=== PATIENT | male | born 1935 | race Caucasian/White ===

== ENCOUNTER 2016-11-01 17:22 | Inpatient (IN) | payer MEDICARE ==
[~2016-11-01] VITALS: Ht 177.8 cm; Wt 98.9 kg
[~2016-11-01 17:22] MED LIST: ALEN40TA2 PO; BRIM5DRO LEFT_EYE; CARB1TAB14 PO; DICL100G8 TOPICAL; DOCU240C41 PO; LATA2.5D6 LEFT_EYE; LEVO750T9 PO; LORA0.5T PO; MAGN100T5 PO; NASONEX; POTA10TA12 PO; PRD5T PO; PREG225C PO; aleve
[2016-11-01 17:40] VITALS: BP 170/70; PULSE 96; RESP 22; O2SAT 94
[2016-11-01 17:58] LABS: BASOPHILS % (AUTO) 0.1 % (0-3); EOSINOPHILS % (AUTO) 0 % (0-5); MONOCYTES % (AUTO) 4.8 % (4-12); Mean Corpuscular Hemoglobin 35.1 pg (27.0-35.0); Mean Corpuscular Volume 104.2 fL (81-100); NEUTROPHILS % (AUTO) 89.7 % (40-74); Platelet Count 198 bil/L (150-400)
[2016-11-01 18:21] LABS: TROPONIN T < 0.010 ug/L (0.0-0.011)
--- NOTE | 2016-11-01 18:21 | DRSVH ---
PROCEDURE: X-RAY CHEST ONE VIEW, PORTABLE ([id number]) INDICATIONS: SHORTNESS OF BREATH TECHNIQUE: One view of the chest was acquired. COMPARISON: [facility], CT, CT CHEST W CON, 10/06/2016, 12:59. [facility], C R, XR CHEST 1VW (PORTABLE), 09/12/2015, 23:33. FINDINGS: Surgical changes and devices: Low anterior cervical fusion. Right shoulder arthroplasty. Lungs and pleura: No pleural effusions or pneumothorax. Moderate patchy opacity within the left midl raudel and right lower lung. Mediastinum: Mediastinal contours appear normal. Heart size is normal. Bones and chest wall: No suspicious bony lesions. Overlying soft tissues appear unremarkable. IMPRESSION: Multifocal pneumonia. Dictated by: Ray Desai M.D. on 11/01/2016 at 18:18 Approved by: Ray Desai M.D. on 11/01/2016 at 18:18
[2016-11-01 19:04] VITALS: BP 174/42; PULSE 97; RESP 24; O2SAT 96
--- NOTE | 2016-11-01 19:37 | ED.REPORT ---
HPI-Trauma Minor / Fall Date of Service Nov 01, 2016 ED Provider: John Holcomb MD 81 year old male with a history of Afib, Parkinson's, anxiety, depression and chronic pain who presents to the ER due to generalized weakness. Today he fell on the ground and was unable to get himself up off the ground. He was on the ground for approximately 2.5 hours before calling EMS. Pt reports head trauma with no LOC. In the last hour he has developed a mild headache. For the last few days the patient has felt chills and his noted him to be shaky. He reports a productive cough with no acute change in the last few days. Pt has chronic back pain but denies focal weakness, SOB, dysuria, vomiting, diarrhea and diaphoresis. Pt has not taken antibiotics for the last 3 months. Nursing Notes Stated Complaint: GROUND LEVEL FALL Chief Complaint: General Complaint Nursing Notes Reviewed: Yes ([employer], [employer] not reconciled) Allergies: Coded Allergies: Cephalexin Monohydrate (Verified Allergy, Intermediate, Rash/itching, ) Penicillins (Verified Allergy, Unknown, 11/01/16) oxycodone (Verified Allergy, Unknown, unknown, 11/01/16) Patient wants it documented in allergy list. Uncoded Allergies: CAT GUTS (Allergy, Unknown, 04/01/07) Scheduled Alendronate (Alendronate) 40 Mg Tablet 70 MG PO WEEKLY Take on Saturdays Aspirin (Aspirin) 81 Mg Tablet 81 MG PO DAILY Brimonidine Tartrate/Timolol (Combigan Eye Drops) 5 Ml Drops 5 ML LEFT_EYE BID Carbidopa/Levodopa 25-100 mg (Carbidopa/Levodopa 25-100 mg) 1 Each Tablet 1 TABLET PO TID Carboxymethylcellulos/Glycerin (Refresh Optive Gel Eye Drops) 1 %-0.9 % Drops.gel 10 ML BOTH_EYES HS 1 drop at night and as needed throughout the day Docusate Calcium (Stool Softener) 240 Mg Capsule 240-480 MG PO DAILY Hydrochlorothiazide (Hydrochlorothiazide) 25 Mg Tablet 25 MG PO Mon/Wed/Fri Hydrocodone-Acetaminophen 7.5-325 mg (Hydrocodone-Acetaminophen 7.5-325 mg) 1 Each Tablet 1-2 TABLET PO DIRECTED Takes 2 in AM, 1 in afternoon, 2-3 tablets at HS. Up to 6/day. Latanoprost (Latanoprost) 2.5 Ml Drops 1 GTT LEFT_EYE QAM Takes in AM Lorazepam (Lorazepam) 0.5 Mg Tablet 0.5 MG PO BID Takes in evening and at HS Magnesium Oxide (Magnesium) 400 Mg Tablet 400 MG PO HS Multivit with Calcium,Iron,Min (Therapeutic M) 1 Each Tablet 1 EACH PO DAILY Potassium Chloride ER (Potassium Chloride ER) 10 Meq Tablet 10 MEQ PO Mon/Sun/ Fri TAKE WITH FOOD Prednisolone Acetate (Prednisolone Acetate) 5 Ml Drops.susp 5 ML LEFT_EYE HS Prednisone (PredniSONE) 5 Mg Tab 7.5 MG PO DAILY Pregabalin (Lyrica) 225 Mg Capsule 225 MG PO HS Tizanidine (Tizanidine) 4 Mg Tablet 6 MG PO HS Scheduled PRN Diclofenac Gel (Voltaren Gel) 100 Gm Tube 1 APPLIC TOPICAL DAILY PRN PRN For Pain To shoulders Polyethylene Glycol 3350 (Miralax) 17 Gm Powd.pack 17 GM PO DAILY PRN PRN For Constipation General Time Seen by MD: 19:33 Chief Complaint Fall Hx Obtained From: Patient, Spouse, EMS Arrived By: Ambulance Onset Occurred: 2 days ago Symptom Duration: Since onset Location: Back (chronic) Head Quality: Painful Severity: Current: Moderate Associated with: Denies: Fever, Loss of consciousness, Neck pain, Shortness of breath, Vomiting Pertinent Negative: Relieved by nothing Past Medical History Past Medical History Parkinson's Anxiety Osteoarthiritis Depression Atrial Fibrillation (not on anticoagulation due to fall risk) ho lung nodule (most recent FU CT 10/2016) Chronic back pain Past Surgical History Total knee repair-right Right shoulder repair Smoking History Former Smoker Social History History of moderate alcohol use. None recently. 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 Physical Exam Initial Vital Signs Vital Signs (First) Date Time Temp Pulse Resp B/P Pulse Ox O2 Delivery O2 Flow Rate FiO2 11/01/16 17:40 37.5 96 22 170/70 94 Room Air Initial VS: Reviewed, Vital signs abnormal (mild HTN) Head / Eyes: Atraumatic (no visible or palpable signs of injury to scalp. ) , Normocephalic, PERRL ENT: Conjunctiva normal, No scleral icterus Respiratory: Breath sounds normal, Clear to auscultation, No respiratory distress (no cough during interview) Abdomen / GI: Soft, Non-tender, No guarding, No rebound, No distention Extremities: Vascular intact, Neuro intact, No tenderness (trace edema in legs) Skin: Warm (Scar of R knee and R shoulder from previous surgeries.), Dry, No cyanosis Neurologic: Alert, Oriented, Nonfocal (no focal weakness) Psychiatric: Mood/affect normal, Behavior normal, Normal thought content General/Constitutional: Awake, Alert, No acute distress Fatigued Globally weak Neck: Atraumatic, Full range of motion, Non-tender ENT: Airway patent Mucous membranes dry Cardiovascular: Heart rate NL, Cap refill not delayed, Peripheral circulation NL Heart Rate / Rhythm: Positive: Irreg irregular rhythm Interpretation & Diagnostics Lab Results Interpretation Result Diagram: 11/01/16 1742 11/01/16 1742 Test 11/01/16 17:42 11/01/16 18:30 White Blood Count 21.9th/mm3 (3.8-10.1) Red Blood Count 3.85mil/mm3 (4.40-5.80) Hemoglobin 13.5g/dL (13.8-17.2) Hematocrit 40.1% (41.0-50.0) Mean Corpuscular Volume 104.2fL (81-100) Mean Corpuscular Hemoglobin 35.1pg (27.0-35.0) Mean Corpuscular Hemoglobin Concent 33.7% (32.0-37.0) Red Cell Distribution Width 13.3% (12.3-15.4) Platelet Count 198bil/L (150-400) Neutrophils (%) (Auto) 89.7% (40-74) Lymphocytes (%) (Auto) 5.0% (14-46) Monocytes (%) (Auto) 4.8% (4-12) Eosinophils (%) (Auto) 0% (0-5) Basophils (%) (Auto) 0.1% (0-3) Hold Purple Top Tube Received (Received) Hold Blue Top Tube Received (Received) Sodium Level 137mEq/L (134-144) Potassium Level 4.2mEq/L (3.5-5.2) Chloride Level 96mEq/L (97-108) Carbon Dioxide Level 25mmol/L (18-29) Blood Urea Nitrogen 18mg/dL (8-27) Creatinine 0.74mg/dL (0.76-1.27) Estimat Glomerular Filtration Rate 108mL/min (>59) Glucose Level 109mg/dL (60-99) Calcium Level 9.1mg/dL (8.5-10.1) Total Bilirubin 1.5mg/dL (0.0-1.2) Aspartate Amino Transf (AST/SGOT) 27U/L (0-50) Alanine Aminotransferase (ALT/SGPT) 6U/L (0-44) Alkaline Phosphatase 63U/L (25-160) Troponin T < 0.010ug/L (0.0-0.011) Pro-B-Type Natriuretic Peptide 1713pg/mL (0-486) Total Protein 6.6g/dL (6.4-8.4) Albumin 4.1g/dL (3.4-5.0) Hold Red Top Tube Received (Received) Hold [place] Top Tube Received (Received) Lactic Acid Level 1.5mmol/L (0.4-2.0) Procalcitonin 0.26ng/mL (0.00-0.08) Lab Results Interpretation: CBC positive leukocytosis CMP normal, trace total bili elevation Lactic acid normal General Lab Results Interp 1: Labs reviewed ECG Interpretation ECG Interpretation: Rate controlled Afib rate of 87. Q waves anteriorly present on old ECG's. No change. Time: 18:05 Interpreted by: ED physician Normal ECG Interpretation: Normal rate (87) Rhythm / Conduction: Atrial fibrillation X-Ray Chest Interpretation Chest Xray Interpretation: IMPRESSION: Multifocal pneumonia. Dictated by: Ray Desai M.D. on 11/01/2016 at 18:18 View: Portable, 1 view Interpretation / Wet Read by: Interpret - Radiologist CT Head Interpretation IMPRESSION: No acute process. Dictated by: Ray Desai M.D. on 11/01/2016 at 20:34 Study: Head CT no contrast Interpretation / Wet Read by: Interpret - Radiologist Re-Eval/Medical Decision Med Decision/Clinical Course This is an 81-year-old male who presents to emergency department complaining of increasing weakness leading to a fall. He has seen yesterday developed a sense of shaking chills and rigors witnessed by the , and today was much more generally weak. Back to try to get up to go back to bed, collapsing to the floor where he did strike his head. Since she has been emergent when he actually has developed an increase headache. He laid on the floor for several hours but was too weak to get up-any Refusing to let his called for assistance. Finally he gave in and let us call for help. He has had a cough, but notes she has also had a cough for several months and is being followed for lung nodules. He denies nausea vomiting diarrhea or dysuria. He denies rashes. He has had no recent antibiotic exposures or hospitalizations. He does have Parkinson's and is due for his symptoms tonight, he also has chronic back pain is due for his hydrocodone. He is not currently febrile. He appears globally weak. I do not appreciate visible signs of trauma to head in terms of laceration, abrasion or hematoma- the patient is complaining of increased headache. He has no cervical spine tenderness. Lungs sounds are coarse, but is not tachypneic or dyspneic. He is not hypoxic. Abdomen is obese soft nontender. He has no focal deficits. His labs are notable for significant leukocytosis, which is concerning in the setting of caridad's and chills as he describes an infectious etiology. His chest x-ray is a new right lower lobe infiltrate, new from his chest CT in October, new compared to the x-ray in September when he was admitted in 2016 for pneumonia. He is started on ceftriaxone and azithromycin. See fluids, Tylenol, received his dose of Sinemet and hydrocodone, and is being admitted for continued management. Given the worsening headache after "hitting my head pretty done well." Head CT was obtained and was negative. He has nol findings of a hip fracture or other injury. Source of Hx: Old records Re-Evaluation/Progress : Time of Eval: 20:01 Re-Evaluation/Progress Note: Pt updated of imaging, labs, ECG and plan for admission. Pt understands and agrees with plan. All questions addressed. Counseled Regarding: Diagnosis, Lab results, Need for admission Discharge & Departure Impression: Primary Impression: Pneumonia Pneumonia type: due to unspecified organism Laterality: bilateral Lung location: unspecified part of lung Qualified Code: J18.9 - Pneumonia, unspecified organism Additional Impressions: Generalized weakness Fall from ground level Disposition: ADMITTED TO HOSPITAL Discharge Condition All VS Reviewed: Yes Referrals: Jerry Barber MD (PCP) Scribe Attestation Portions of this note were transcribed by Ananya Lawson. I, Dr. Holcomb personally performed the history, physical exam and medical decision-making; I reviewed and confirmed the accuracy of the information in the transcribed note. Signed by Bessy Solis, 11/01/2016 at 20:09. copies to: Jerry Barber MD, Matthew F MD Nov 01, 2016 19:37 Ananya Lawson Nov 01, 2016 19:48
[2016-11-01] MEDS ORDERED: HYDROcodone-APAP 7.5-325 mg Tablet PO ONE (19:40)
[2016-11-01] MEDS ORDERED: HYDROmorphone 0.5 mg/0.5 mL iSecure Syringe IVPUSH PRN (20:05)
[2016-11-01] MEDS ORDERED: levoFLOXacin Inj 750 MG in IV Premix 1 EACH IV ONE (20:05)
[2016-11-01] MEDS ORDERED: Ondansetron 2 mg/mL 2 mL Inj IVPUSH ONE (20:05)
[2016-11-01] MEDS ORDERED: POLY17PO6 PO (20:16)
[2016-11-01] MEDS ORDERED: MAGN400T39 PO (20:22)
[2016-11-01] MEDS ORDERED: TIZA4TAB4 PO (20:22)
[2016-11-01] MEDS ORDERED: HYDR25TA4 PO (20:22)
[2016-11-01] MEDS ORDERED: ASPI-973 PO (20:27)
[2016-11-01] MEDS ORDERED: HYDR-3825 PO (20:28)
[2016-11-01] MEDS ORDERED: CARB10DR2 BOTH_EYES (20:28)
[2016-11-01] MEDS ORDERED: PRED5DRO6 LEFT_EYE (20:28)
[2016-11-01] MEDS ORDERED: MULT-140 PO (20:39)
--- NOTE | 2016-11-01 20:40 | DRSVH ---
PROCEDURE: CT BRAIN WITHOUT CONTRAST ([id number]) INDICATIONS: trauma fall rodriguez TECHNIQUE: Noncontrast 4.5 mm thick angled axial sections acquired from the foramen magnum to the vertex, with c oronal reformats. COMPARISON: [facility], CT, CT BRAIN WO CON, 09/13/2015, 0:55. FINDINGS: Image quality: Excellent. CSF spaces: Basal cisterns are patent. No extra-axial fluid collections. The ventricles are symmet compa in size and shape. Brain: No intracranial bleeds or masses. There is cerebral volume loss for age, with resultant vent ricular and sulcal prominence. There are periventricular and deep white matter chronic small vessel ischemic changes. There is intracranial internal carotid artery atherosclerosis. Skull and face: Calvarium and visualized facial bones appear intact, without suspicious lesions. Sinuses: Visualized sinuses and mastoids are clear. IMPRESSION: No acute process. Dictated by: Ray Desai M.D. on 11/01/2016 at 20:34 Approved by: Ray Desai M.D. on 11/01/2016 at 20:38
[2016-11-01 21:02] VITALS: BP 162/84; PULSE 80; RESP 16; O2SAT 95
[2016-11-01] MEDS ORDERED: 0.9% Sodium Chloride 1,000 ML IV SCH (21:14)
[2016-11-01] MEDS ORDERED: Alum-Mag Hydrox-Simeth 30 mL Suspension PO PRN ×2 (21:15→21:40)
[2016-11-01] MEDS ORDERED: Ondansetron 2 mg/mL 2 mL Inj IVPUSH PRN ×2 (21:15→21:40)
[2016-11-01] MEDS: 0.9% Sodium Chloride 1,000 ML IV SCH (21:38)
[2016-11-01] MEDS ORDERED: HYDROcodone-APAP 5-325 mg Tablet PO PRN (21:40)
[2016-11-01] MEDS ORDERED: Polyethylene Glycol (PEG) 17 Gm Powder PO PRN (21:40)
[2016-11-01 21:45] VITALS: BP 134/70; PULSE 95; RESP 18; O2SAT 96
[2016-11-01] MEDS: HYDROcodone-APAP 7.5-325 mg Tablet PO PRN (22:44)
--- NOTE | 2016-11-01 23:14 | PCM.HPMED ---
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 Dr. Lawson reports that he has been feeling malaise over the last 3 days associated with chills, but not rigors (he notes that his chin would occasionally quiver). He reports this morning he awoke, prepared a cup of coffee, and at that point his returned home from an exercise group and reportedly told him that he did not look well. She advised that he go back to bed, and he reports that soon after standing from a seated position he fell to the ground. He does report that he hit the back of his head on the floor, stating that it "bounced." He reports that his told him that he did not lose consciousness, but he states that the details just prior to during soon after the fall are fuzzy to him, and he is not able to give a very detailed account of the events. He reports that once he was on the floor he attempted several times to get up off of the floor, and could not stating that he was very weak and his legs just would not work. At this point his reportedly asked him if she should get a neighbor to help, and she states that she advised her to call 911. Patient is not clear regarding how long he was on the ground. Per his report it sounds like the fall and the call to 911 And relatively close together, but the ER report states that he was down for approximately 2-1/2 hours before 911 was dialed. Occasionally during the interview he loses track of his thought, but is easily redirected. Soon after arriving at the ER, he reports that he developed mild headache which progressively got worse, and prompted a CT scan of the head without contrast ( this was negative). He reported significant body aches and pains here in the ER and received doses of IV Dilaudid, by mouth [place], and by mouth Tylenol which effectively relieved his pain to tolerable levels. He reports that he now feels somewhat back to baseline as far as his mentation, and feels mostly back to baseline as far as the strength in his legs though he states that he has not yet attempted to walk. In addition to the above, he reports a chronic cough for the last for maybe 5 months. He describes this cough as occurring in the morning (sometimes in the afternoon after a nap) and associated with expectoration of sputum (rarely is there ever a bloody streak). He denies any increase in cough or sputum production over the last 3 or 4 days. He also denies any sick contacts recently , recent travel, recent antibiotics (going back 3-6 months). He denies rash, but does report that he suspects he has some kind of "balanitis" as the tip of his penis will occasionally burn (not daily) with urination and there is some associated itching. He reports using topical creams (one of which is a hydrocortisone-based cream) for this condition, but it sounds like it is ongoing for some time now. He denies penile discharge, or increased frequency of urination, or suprapubic discomfort. He reports that his appetite is good, and despite his best efforts he has been gaining weight (though he notes that his lifestyle is quite sedentary and he is on chronic steroids). He does not feel this weight gain is water weight. He reports chronic lower extremity edema bilaterally for which she takes a diuretic (attempts to control with compression stockings in the past have resulted in increased pain in his feet and legs). Constipation is occasionally an issue, that he controls it well with MiraLAX and senna. He has chronic back pain but denies focal weakness, SOB, chest pain (including pleuritic pain), nausea, vomiting, diarrhea, dizziness, lightheadedness, vision change, numbness/paresthesias, and diaphoresis. Chest x-ray demonstrated multifocal opacities concerning for underlying infection in the setting of significant leukocytosis with neutrophilia. Patient was given a dose of Levaquin in the ER. Patient is admitted under inpatient status with expected length of stay greater than 2 midnights due to severity of presenting symptoms, risk of adverse event, and complexity of treatment plan. Review of Systems: Comprehensive review of systems conducted and was negative except for the pertinent positives listed in history of present illness above. Allergies Coded Allergies: Cephalexin Monohydrate (Verified Allergy, Intermediate, Rash/itching, ) Penicillins (Verified Allergy, Unknown, 11/01/16) oxycodone (Verified Allergy, Unknown, unknown, 11/01/16) Patient wants it documented in allergy list. Uncoded Allergies: CAT GUTS (Allergy, Unknown, 04/01/07) Home Medications From [facility] is been completed: Jann Lawson. [id number] 1935 10/23/2016 03:00 PM Page: 09/07 ALENDRONATE 70MG TABLETS TAKE 1 TABLET BY MOUTH ONCE WEEKLY IN THE MORNING AT LEAST 30 MINUTES BEFORE FIRST FOOD, BEVERAGE, OR MEDICATION OF THE DAY aspirin 81 mg Tab take 1 tablet (81MG) by ORAL route every day carbidopa 25 mg-levodopa 100 mg tablet take 1 Tablet by oral route 3 times every day [place] 0.2 %-0.5 % eye drops instill 1 drop by ophthalmic route every 12 hours into affected eye(s) erythromycin with ethanol 2 % topical solution APPLY BY TOPICAL ROUTE 2 TIMES EVERY DAY A THIN LAYER TO THE AFFECTED AREA(S) IN THE MORNING AND EVENING Flonase 50 mcg/actuation nasal spray,suspension spray 1 spray by intranasal route every day in each nostril PRN Gaviscon 80 mg-14.2 mg chewable tablet take 1 tablet once daily in the evening hydrochlorothiazide 25 mg tablet TAKE 1 TABLET BY ORAL ROUTE 3 TIMES WEEKLY hydrocodone 7.5 mg-acetaminophen 325 mg tablet take 1 tablet every 4 hours if needed IMODIUM A-D PRN IBS ipratropium bromide 0.03 % Nasal [place] spray 2 spray by intranasal route 2- 3 times every day in each nostril Lactaid Fast Act 9,000 unit tablet loratadine 10 mg tablet PRN (uses occasionally) lorazepam 0.5 mg tablet take 1 tablet (0.5MG) twice a day as needed Lyrica 225 mg capsule take 1 capsule by oral route at night magnesium 200 mg tablet take 2 tablets once daily Miralax 17 gram/dose oral powder take (17G) by oral route every day mixed with 8 oz. water, juice, soda, coffee or tea multivitamin Tab take 1 tablet by ORAL route every day with food Pepcid Complete 10 mg-800 mg-165 mg chewable tablet chew 1 tablet once daily in the morning potassium chloride ER 10 mEq tablet,extended release take 1 tablet by mouth 3 times weekly with HCTZ with food Pred Forte 1 % eye drops,suspension instill 1 drop by ophthalmic route to left eye once daily prednisone 5 mg tablet TAKE 1 TABLET BY MOUTH EVERY DAY, MAY TAKE 2 IF ARTHRITIS GETS WORSE Stool Softener take up to 4 everyday TIZANIDINE 4MG TABLETS TAKE 1/4 TO 2 TABLETS NEEDED AT BEDTIME Tylenol Ex Str Arthritis Pain 500 mg tablet take 2 tablet by oral route every 6 hours as needed Voltaren 1 % topical gel APPLY (2G) BY TOPICAL ROUTE 4 TIMES EVERY DAY TO THE AFFECTED AREA(S) PMH Arthritis Chronic A. fib not on anticoagulation, and not on rate controlling medication * Met with the wastewater treatment operator on 05/15/16 at which time his annual risk of stroke was 3.2%, and of any embolic events 4.6% using chads-vascular 2 score. * Anticoagulation with warfarin or NOAC was recommended at that time, but patient declined. It appears further discussions of the matter have met with the same resistance. Chronic lower extremity edema on a diuretic Parkinson's on carbidopa-levodopa HTN on hydrochlorothiazide GERD Depression Anxiety Fibromyalgia on chronic opiates ([place] 7.5/325 one tab every 4 hours when necessary) Degenerative joint and disc disease insomnia Cervical Stenosis Chronic pain disorder/fibromyalgia Urinary urgency/incontinence and nocturia Patient reports history of prostate disorder (adenocarcinoma)-he reports having a follow-up appointment with urology in the coming months History of IBS History of inguinal hernia Poor exercise capacity (likely secondary to his chronic pain) Surgical History Total knee repair-right 2010 Right shoulder replacement Neck surgery 01/2016 TURP 2008 Corneal implants Cataracts Family History Father had COPD, and at age 80 (COPD reportedly cause of ) Mother had stroke, and at age 80 (stroke reportedly cause of ) Brother had ulcers, at age 78 (ulcers reportedly cause of ) Sr. 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 Reports service in the [employer], and served in [place] in the surrounding area. Reports international travel in addition to the above, [place]. Exam Vital Signs Vital Sign - Last Date Time Temp Pulse Resp B/P Pulse Ox O2 Delivery O2 Flow Rate FiO2 11/01/16 21:02 37.4 80 16 162/84 95 Room Air Exam General: Obese. Alert, Oriented X3, Cooperative, No Acute Distress [facility] Head: Normocephalic, atraumatic. External ears normal. Eyes: PERRL, EOMI. Anicteric sclerae. Conjunctiva are not injected Mouth: Mouth Normal, Mucous Membranes Moist/[place] Neck: Neck supple with full range of motion. No Thyromegaly. Chest & Lungs: Rales in the bilateral bases but otherwise clear at this time. Normal respiratory effort without use of accessory muscles. Cardiovascular: Normal S1, Normal S2, No Murmurs/Rubs/Gallops appreciated. Rhythm on the monitor appears to be A. fib. Radial and posterior tibial pulses are 2+ bilaterally. No carotid bruit appreciated. Abdomen: Non-tender, Non-distended, No masses, Normoactive bowel tones, Soft Musculoskeletal: Normal Range of Motion Extremities: Mild pitting edema bilaterally from the feet and knees. No hyperpigmentation or other skin discoloration. No lesions appreciated. : Patient reports mild tenderness/irritating sensation to palpation of the distal penis and head. There is old-appearing remnant of creams and powders on the distal penis including the head. There is a mildly foul odor. Do not appreciate any underlying erythema (though difficult as the remnants are quite adherent to the skin). There is no penile discharge and the urethral meatus is without erythema or otherwise indications of irritation. The testicles and scrotum and associated structures are without abnormality or tenderness. Neurological: Grossly Neurologically Intact, Cranial Nerves 2-12 Intact, Normal Speech Psych: Normal mood and affect. Thought process (patient briefly lost his train of thought once over the course of the interview, but was rapidly redirected) and content intact. Lab and Diagnostics Labs Laboratory Tests 72 Hours Test 11/01/16 17:42 11/01/16 18:30 White Blood Count 21.9th/mm3 (3.8-10.1) Red Blood Count 3.85mil/mm3 (4.40-5.80) Hemoglobin 13.5g/dL (13.8-17.2) Hematocrit 40.1% (41.0-50.0) Mean Corpuscular Volume 104.2fL (81-100) Mean Corpuscular Hemoglobin 35.1pg (27.0-35.0) Mean Corpuscular Hemoglobin Concent 33.7% (32.0-37.0) Red Cell Distribution Width 13.3% (12.3-15.4) Platelet Count 198bil/L (150-400) Neutrophils (%) (Auto) 89.7% (40-74) Lymphocytes (%) (Auto) 5.0% (14-46) Monocytes (%) (Auto) 4.8% (4-12) Eosinophils (%) (Auto) 0% (0-5) Basophils (%) (Auto) 0.1% (0-3) Hold Purple Top Tube Received (Received) Hold Blue Top Tube Received (Received) Sodium Level 137mEq/L (134-144) Potassium Level 4.2mEq/L (3.5-5.2) Chloride Level 96mEq/L (97-108) Carbon Dioxide Level 25mmol/L (18-29) Blood Urea Nitrogen 18mg/dL (8-27) Creatinine 0.74mg/dL (0.76-1.27) Estimat Glomerular Filtration Rate 108mL/min (>59) Glucose Level 109mg/dL (60-99) Calcium Level 9.1mg/dL (8.5-10.1) Total Bilirubin 1.5mg/dL (0.0-1.2) Aspartate Amino Transf (AST/SGOT) 27U/L (0-50) Alanine Aminotransferase (ALT/SGPT) 6U/L (0-44) Alkaline Phosphatase 63U/L (25-160) Troponin T < 0.010ug/L (0.0-0.011) Pro-B-Type Natriuretic Peptide 1713pg/mL (0-486) Total Protein 6.6g/dL (6.4-8.4) Albumin 4.1g/dL (3.4-5.0) Hold Red Top Tube Received (Received) Hold Bowie Top Tube Received (Received) Lactic Acid Level 1.5mmol/L (0.4-2.0) Procalcitonin 0.26ng/mL (0.00-0.08) Result Diagram: 11/01/16174111/01/161741 X-Rays, CTs and MRIs Date of Service: 11/01/161746 PROCEDURE: X-RAY CHEST ONE VIEW, PORTABLE ([id number]) IMPRESSION: Multifocal pneumonia. Dictated by: Ray Desai M.D. on 11/01/2016 at 18:18 Date of Service: 11/01/162009 PROCEDURE: CT BRAIN WITHOUT CONTRAST ([id number]) IMPRESSION: No acute process. Dictated by: Ray Desai M.D. on 11/01/2016 at 20:34 Please note the following imaging performed last month: Date of Service: 10/06/16 1231 PROCEDURE: CT CHEST WITH CONTRAST ([id number]) IMPRESSION: 1. Mild patchy air space opacities as above. No findings to explain patient's cough. 2. 6 mm right lower lobe pulmonary nodule. Please see followup guidelines below. Fleischner Society criteria for SOLID lung nodule followup. Dictated by: Florina Philip M.D. on 10/06/2016 at 14:53 12-lead ECG Not yet performed this admission, but please note that monitor shows Afib. Cardiac Echo Impressions Most recent echo was 12/2015 EF 60-65% with an RVSP of 27, LA is severely dilated, RA is severely dilated. No significant valvular heart disease. Assessment & Plan Jann Lawson is an 81-year-old obese male with past medical history significant for Afib, Parkinson's, and multifactorial chronic pain on chronic opiates and steroids (reports 7.5 mg prednisone daily) who presents to the ER due to generalized weakness following a ground-level fall at his home today. 1. Ground-level fall with lower extremity weakness, acute. Present on admission -Primary concern is that this may be related to an underlying infection (see below) -Workup and management of suspected infection (see below) -CT brain without contrast was negative -Differential includes progression of his DDD resulting in lower extremity weakness, postural hypotension, seizure, near syncope, and potentially steroid- induced myopathy, deconditioning * Please note patient reports reduced exercise capacity(reportedly walks perhaps 40 yards to check the mail, but significantly limited by his chronic pain). -Check EKG -Monitor on telemetry -Perform orthostatics -Activity: Up with assist, physical therapy assessment -Check a B12, folate -Check a vitamin D -Stress dose Prednisone: 20mg daily 2. Pulmonary infiltrates with leukocytosis and neutrophilia, unknown chronicity. Present on admission -Please see CT chest without contrast reported above -Previous radiologic findings would suggest that his pulmonary infiltrates or chronic (at least to some degree) -Clinically, he is not demonstrating strong indicators of infection at this time -However, his significant leukocytosis with neutrophilia (not fully explained by his chronic steroid use) would suggest an underlying infectious/inflammatory process of some kind -Given the above, will treat empirically with levofloxacin (this is given his reported allergies to penicillins and at least one cephalosporin) * Patient reports being on 7.5 mg of prednisone daily, so some consideration for potential immunocompromise in this gentleman -Repeat pro calcitonin * See procalcitonin and lactic acid above -Urine legionella and strep antigens, QuantiFERON [place] (given his travel to [place] in [place]), HIV and hepatitis C to assess for potential complicating infectious factors -Continue to monitor CBC -Continue to monitor patient for clinical change -Differential includes CHF, chronic lung disease, fluid overload, aspiration pneumonitis 3. Penile mucosal and cutaneous findings concerning for superficial inflammatory condition. Present on admission -Unclear etiology at this point -First order of business will be to clean the old topical preparations he has applied at home -Differential includes Tony[place], bacterial, pemphigoid process, contact dermatitis, poor hygiene -Alternatively, the burning that he was describing may be related to an underlying UTI, and we are still awaiting his ability to provide a urine sample to be sent for evaluation 4. Hyperbilirubinemia, acute. Present on admission -Unclear etiology, but potentially concerning for alternative source of inflammation/infection given his leukocytosis -Given the chronicity of his anemia, unlikely that this is an indication of hemolysis -Continue to monitor labs -Should his labs tomorrow continue to be abnormal, consideration for abdominal ultrasound and/or hemolytic anemia workup 5. Chronic macrocytic anemia. Present on admission -B12, folate as above Chronic conditions: Chronic A. fib not on anticoagulation (takes a baby aspirin), not on rate control medication (apparently asymptomatic)-consideration for discussing possibility of anticoagulation again this hospitalization (see past medical history above) Chronic lower extremity edema on a diuretic Parkinson's on carbidopa-levodopa, and will continue HTN on hydrochlorothiazide, and will continue GERD Depression/Anxiety Chronic pain disorder/fibromyalgia on chronic opiates, and will continue ([place] 7.5/325 one tab every 4 hours when necessary) Urinary urgency/incontinence and nocturia Patient reports history of prostate disorder (adenocarcinoma)-he reports having a follow-up appointment with urology in the coming months (PSA in September of this year was 0.6) PRN MEDICATIONS - Acetaminophen as needed for mild pain/fever/headache - Bowel regimen as needed - Antiemetic as needed Patient is admitted under inpatient status with expected length of stay greater than 2 midnights due to severity of presenting symptoms, risk of adverse event, and complexity of treatment plan. Pain Evaluation: Adequate Pain Control GI Prophylaxis: Not indicated VTE Prophylaxis: Sub-Q Heparin (Unfractionated) Resuscitation Status: CPR: Attempt Resuscitation copies to: Jerry Barber MD, Collin T DO Nov 01, 2016 23:14
[2016-11-01] MEDS ORDERED: Artificial Tears 15 mL Ophthalmic Solution BOTH_EYES PRN (23:30)
[2016-11-01 23:50] LABS: APPEARANCE,URINE CLEAR (CLEAR,HAZY); COLOR,URINE YELLOW (YELLOW); OCCULT BLOOD,URINE NEGATIVE (NEGATIVE); UROBILINOGEN,URINE NORMAL (NORMAL)
[2016-11-01] MEDS: Brimonidine-Timolol 5 mL Ophthalmic Solution LEFT_EYE SCH (23:56)
[2016-11-01] MEDS: PrednisoLONE 1% 5 mL Ophthalmic Suspension LEFT_EYE SCH (23:56)
[2016-11-01] MEDS: LORazepam 0.5 mg Tablet PO PRN (23:58)
[2016-11-02] VITALS (11 sets, daily range): BP systolic 133–158; BP diastolic 73–85; PULSE 62–90; RESP 15–18; O2SAT 94–97
[2016-11-02] MEDS ORDERED: ACET-171 PO (00:44)
[2016-11-02] MEDS ORDERED: FAMO1TAB PO (00:48)
[2016-11-02] MEDS ORDERED: MG T1TAB2 PO (00:50)
[2016-11-02] MEDS ORDERED: FLUT9.9S NS (00:50)
[2016-11-02] MEDS ORDERED: LOPE2CAP PO (00:51)
[2016-11-02] MEDS ORDERED: IPRA30SP8 NS (00:51)
[2016-11-02] MEDS ORDERED: LORA10CA PO (00:53)
[2016-11-02] MEDS ORDERED: LACT30003 PO (00:53)
[2016-11-02] MEDS: LORazepam 0.5 mg Tablet PO PRN ×2 (00:56→22:16)
[2016-11-02] MEDS: Heparin 5,000 Unit/mL Inj SUBQ SCH ×3 (01:04→16:56)
--- NOTE | 2016-11-02 04:52 | NUR ---
Admit Patient arrived to unit from ED at 2200, oriented to room. C/O mild pain in shoulders and neck requesting pain medication. Alert and oriented able to make needs known.
[2016-11-02] MEDS: Brimonidine-Timolol 5 mL Ophthalmic Solution LEFT_EYE SCH ×2 (06:09→22:06)
[2016-11-02] MEDS: HYDROcodone-APAP 7.5-325 mg Tablet PO PRN ×4 (06:10→22:08)
[2016-11-02 07:33] LABS: BASOPHILS % (AUTO) 0.1 % (0-3); EOSINOPHILS % (AUTO) 0.5 % (0-5); MONOCYTES % (AUTO) 8.7 % (4-12); Mean Corpuscular Hemoglobin 34.7 pg (27.0-35.0); Mean Corpuscular Volume 104.8 fL (81-100); NEUTROPHILS % (AUTO) 74.8 % (40-74); Platelet Count 175 bil/L (150-400)
[2016-11-02 07:50] LABS: Magnesium 2.1 mg/dL (1.6-2.6); Phosphorus 2.6 mg/dL (2.5-4.9)
[2016-11-02] MEDS ORDERED: predniSONE 20 mg Tablet PO SCH (08:30)
[2016-11-02] MEDS ORDERED: Brimonidine-Timolol 5 mL Ophthalmic Solution LEFT_EYE SCH (08:30)
--- NOTE | 2016-11-02 11:21 | PCM.PNMED ---
Subjective Date of Service Nov 02, 2016 Subjective pt denied having SOB, dizziness, has still mild chronic cough, intermittent sputum no overnight event, remained afebrile denied diarrhea Exam Vital Signs Vital Sign - Last Date Time Temp Pulse Resp B/P Pulse Ox O2 Delivery O2 Flow Rate FiO2 11/02/16 09:42 36.6 67 18 133/77 94 Room Air Intake and Output 11/01/16 11/01/16 11/02/16 Cumulative From/Thru 15:00 23:00 07:00 11/01/16 17:40 - 11/02/16 06:12 Intake Total 990 ml 2230 ml 3220 ml Output Total 350 ml 350 ml Balance 990 ml 1880 ml 2870 ml Intake Oral 600 ml 600 ml IV Total 990 ml 1630 ml 2620 ml Output Urine Total 350 ml 350 ml # Bowel Movements 0 0 Exam Elderly male, comfortably laying down on the bed, pleasant no cog wheel movement, no rigidity, speaks fluently, normal speed, motor strength 5/5 throughout, no restring/intentional tremors no JVD, MMM, no LAD RRR, nl s1, s2 no mrg poor inspiratory effort, decreased BS, mild crackles up to MLF S,ND,NT,normoactive BS+ warm, no edema, pulses 2/2 IVs and Medications Medications Reviewed: Medications were reviewed in detail Lab and Diagnostics Result Diagram: 11/02/16 0700 11/02/16 0700 X-Rays, CTs and MRIs Date of Service: 11/01/16 1747 PROCEDURE: X-RAY CHEST ONE VIEW, PORTABLE ([id number]) IMPRESSION: Multifocal pneumonia. Dictated by: Ray Desai M.D. on 11/01/2016 at 18:18 Date of Service: 11/01/162009 PROCEDURE: CT BRAIN WITHOUT CONTRAST ([id number]) IMPRESSION: No acute process. Dictated by: Ray Desai M.D. on 11/01/2016 at 20:34 Please note the following imaging performed last month: Date of Service: 10/06/16 1231 PROCEDURE: CT CHEST WITH CONTRAST ([id number]) IMPRESSION: 1. Mild patchy air space opacities as above. No findings to explain patient's cough. 2. 6 mm right lower lobe pulmonary nodule. Please see followup guidelines below. Fleischner Society criteria for SOLID lung nodule followup. Dictated by: Florina Philip M.D. on 10/06/2016 at 14:53 12-lead ECG Not yet performed this admission, but please note that monitor shows Afib. Cardiac Echo Impressions Most recent echo was 12/2015 EF 60-65% with an RVSP of 27, LA is severely dilated, RA is severely dilated. No significant valvular heart disease. Assessment & Plan Jann Lawson is an 81-year-old obese male with past medical history significant for Afib, Parkinson's, and multifactorial chronic pain on chronic opiates and steroids (reports 7.5 mg prednisone daily) who presents to the ER due to generalized weakness following a ground-level fall at his home acute, active #Ground-level fall in the setting of LE weakness, no prodromes, POA, ddx: likely related to baseline motor weakness with PD or newly developed infection. minor head trauma. CTH negative for acute findings. -PT to assess gait stability - pt stated that he had similar episodes of fall many times 6-7yrs ago when dxed with PD and about an year ago in the setting of worsened PD, however, recently no flare of symptoms and currently no signs of worsening PD, will continue home PD meds -keep telemetry -FU B12, folate, vitD, check orthostatic v/s #Pulmonary infiltrates with leukocytosis and neutrophilia, POA, likely chronic but CXR showed multifocal opacities. chest CT 2/3 showed pulmonary nodule 6mm in RLL and patchy air space opacities in LLL. -pt is clinically stable, denied any worsening of respiratory sx, remained oxygenating well. -will repeat chest CT with con to see any progression, -keep abx for probable PNA -sent infectious w/o for atypical infection given chronic steroid use, FU QuantiFERON Gold (given his travel to [place] in [place]), HIV and hepatitis C -trends fever curve, wbc chronic, stable, #chronic arthritis, pt is on chronic steroid tx for this, denied reporting any flare or arthritis, -will 7.5 mg of prednisone daily, so some consideration for potential immunocompromise in this gentleman #Penile mucosal and cutaneous findings concerning for superficial inflammatory condition, unlikely associated with current presentation, monitor sx for now #Hyperbilirubinemia, bil1.5 on adm, stable, will monitor for now #Chronic macrocytic anemia, follow up B12, folate as above #Chronic A. fib on ASA, will continue asa #Chronic lower extremity edema on a diuretic, continue home meds #Parkinson's on carbidopa-levodopa, and will continue #HTN on hydrochlorothiazide, and will continue #GERD #Depression/Anxiety #Chronic pain disorder/fibromyalgia on chronic opiates, and will continue ( [place] 7.5/325 one tab every 4 hours when necessary) #Urinary urgency/incontinence and nocturia #Patient reports history of prostate disorder (adenocarcinoma)-he reports having a follow-up appointment with urology in the coming months (PSA in September of this year was 0.6) dispo: likely within 1-2more days home Full Code diet: DASH GI Prophylaxis: Not indicated VTE Prophylaxis: Sub-Q Heparin (Unfractionated) VTE Mechanical Devices: Intermittant Pneumatic CD Resuscitation Status: CPR: Attempt Resuscitation Time spent 35min Chung Urban MD Nov 02, 2016 11:12
--- NOTE | 2016-11-02 13:09 | NUR ---
Evaluation completed. Please go to "Notes" then click on "Assessments and Notes" (bottom left corner of screen). Then select appropriate discipline tab on top of screen.
--- NOTE | 2016-11-02 14:22 | DRSVH ---
PROCEDURE: CT CHEST WITH CONTRAST ([id number]) INDICATIONS: multifocal pna on cxr compared to CT last month TECHNIQUE: After the administration of intravenous contrast, 5 mm thick sections acquired from the pulmonary api sergio to the posterior costophrenic angles. 7 mm thick coronal and sagittal MIP reformats were acquire d. For radiation dose reduction, the following was used: automated exposure control, adjustment of mA and/or kV according to patient size. COMPARISON: [facility], CR, XR CHEST 1VW (PORTABLE), 11/01/2016, 17:43. [facility], CT, CT CHEST W CON, 10/06/2016, 12:59. FINDINGS: Image quality: Excellent. Lungs and pleura: No moderate patchy air space opacities within the bilateral upper and lower lobes are present, new since the prior examination, indicating multifocal pneumonia. There is consequent ob scuration of the previously seen right lower lobe nodule. Small bilateral pleural effusions are prese nt. No pneumothorax. Central and peripheral airways are patent and normal in caliber. Mediastinum: Heart size is normal. There is calcification of the coronary vasculature. Slightly incr eased right paratracheal lymph node measuring 10 mm short axis is present. Slightly increased subcari nal lymph node measuring 12 mm short axis is present. Calcified right paratracheal and right hilar ly mph nodes are present, as before. No pericardial effusion. No mediastinal or hilar adenopathy by si ze criteria. Thoracic aorta and central pulmonary arteries are normal in size. Esophagus is normal in caliber. No hiatal hernia. Bones and chest wall: No suspicious bony lesions. No vertebral body compression fractures. No axil lisa or supraclavicular adenopathy by size criteria. Thyroid gland is within normal limits. Abdomen: Visualized upper abdominal solid organs appear normal. Upper abdominal bowel loops are nor mal in caliber. IMPRESSION: 1. Multifocal pneumonia with reactive mediastinal lymph node enlargement. 2. Previously seen right lower lobe pulmonary nodule is obscured. 3. Small bilateral parapneumonic effusions. 4. Coronary artery disease. Dictated by: Ray Desai M.D. on 11/02/2016 at 14:17 Approved by: Ray Desai M.D. on 11/02/2016 at 14:20
--- NOTE | 2016-11-02 19:41 | NUR ---
Activity P: Pt reports generalized weakness, changes in gait and transfer ability resulting in GLF at home, persistent cough. I: PT evaluation completed. IV antibiotics given. Pain control. E: Pt reports improved energy and decreased SOB with ambulation this afternoon. Steady with FWW and gait belt use. Pt is encouraged by this. Plan to consult with pulmonology tomorrow about worsening CT scan.
[2016-11-02] MEDS ORDERED: Polyethylene Glycol (PEG) 17 Gm Powder PO ONE (19:45)
[2016-11-02] MEDS ORDERED: levoFLOXacin 750 mg Tablet PO SCH (20:30)
[2016-11-02] MEDS ORDERED: PrednisoLONE 1% 1 mL Ophthalmic Suspension LEFT_EYE SCH (21:00)
[2016-11-02] MEDS: 0.9% Sodium Chloride 1,000 ML IV SCH (22:05)
[2016-11-02] MEDS: PrednisoLONE 1% 5 mL Ophthalmic Suspension LEFT_EYE SCH (22:06)
[2016-11-03] MEDS: Heparin 5,000 Unit/mL Inj SUBQ SCH ×3 (00:06→16:30)
[2016-11-03 00:18] VITALS: BP 136/85; PULSE 61; RESP 16; O2SAT 97
[2016-11-03] MEDS: LORazepam 0.5 mg Tablet PO PRN (02:11)
[2016-11-03] MEDS: HYDROcodone-APAP 7.5-325 mg Tablet PO PRN ×4 (02:12→16:41)
[2016-11-03 04:07] LABS: Vitamin D, 25-Hydroxy 42.8 ng/mL (30.0-100.0)
--- NOTE | 2016-11-03 04:36 | NUR ---
Pain / sleep Pain adequately controlled with Shirley every 4 hours. Had a difficult time sleeping, ativan helped; observed sleeping after 2nd dose at 0200. Ambulated well with walker to for HS care. Pt reports feeling better. Hourly rounding ongoing.
[2016-11-03 05:45] VITALS: BP 139/67; PULSE 63; RESP 17; O2SAT 97
[2016-11-03 06:02] LABS: BASOPHILS % (AUTO) 0.1 % (0-3); EOSINOPHILS % (AUTO) 0.1 % (0-5); MONOCYTES % (AUTO) 6.3 % (4-12); Mean Corpuscular Hemoglobin 34.1 pg (27.0-35.0); Mean Corpuscular Volume 105.1 fL (81-100); NEUTROPHILS % (AUTO) 81.6 % (40-74); Platelet Count 168 bil/L (150-400)
[2016-11-03 06:29] LABS: Magnesium 2.1 mg/dL (1.6-2.6); Phosphorus 2.4 mg/dL (2.5-4.9)
[2016-11-03 07:13] LABS: Vitamin B12 844 pg/mL (211-946)
[2016-11-03 08:00] VITALS: PULSE 77
[2016-11-03] MEDS ORDERED: predniSONE 5 mg Tablet PO SCH (08:00)
[2016-11-03] MEDS: Brimonidine-Timolol 5 mL Ophthalmic Solution LEFT_EYE SCH (08:50)
[2016-11-03 10:20] VITALS: BP 112/70; PULSE 65; RESP 16; O2SAT 96
[2016-11-03] MEDS: 0.9% Sodium Chloride 1,000 ML IV SCH (13:38)
[2016-11-03 15:20] VITALS: BP 135/61; PULSE 61; RESP 16; O2SAT 94
--- NOTE | 2016-11-03 15:35 | PCM.DIMED ---
Discharge Instructions Date of Service Nov 03, 2016 Dates of Hospitalization Nov 01, 2016 at 20:48 Discharge Diagnosis Discharge Diagnosis ground level fall in the setting of lower extremity weakness, Parkinson disease Chronic cough with abnormal CT chest findings, probable pneumonia Medication Instructions Please take Levaquin 750mg daily for 8more days Diet Low fat, Low Sodium, Heart Healthy Activity No restrictions Patient Instructions You were hospitalized with fall, monitored in the hospital, assessed by physical therapy, notice that your more strength is at your baseline. Please note that you were found abnormal findings on your chest CT, empirically treated for pneumonia, recommended by Pulmonary service to continue antibiotics. Follow-up plan Please follow-up with your doctor in 2 weeks Please follow up with doctor Genaro in 3weeks, Follow-up Provider: Jerry Barber MD Follow-up with PCP in: 2 weeks Provider: Vero Lam MD Follow-up in: 3 weeks Chung Urban MD Nov 03, 2016 15:35
[2016-11-03] MEDS ORDERED: LEVO750T9 PO (15:50)
[2016-11-03] MEDS ORDERED: levoFLOXacin 750 mg Tablet PO ONE (15:55)
--- NOTE | 2016-11-03 17:18 | CONS ---
[address] [address] CONSULTATION REPORT PATIENT: NEAL ANNE : 1935 MR#: [id number] ADMIT: 11/01/2016 JOB ID: [id number] DATE OF SERVICE: 11/03/2016 PULMONARY CONSULTATION NOTE: The patient is an 81-year-old man seen in consultation at the request of Dr. Urban for evaluation of bilateral pulmonary infiltrates and pneumonia. HISTORY OF PRESENT ILLNESS: The patient is an 81-year-old gentleman with history of atrial fibrillation, Parkinson's syndrome, osteoarthritis for which she is on prednisone 7.5 mg daily, who was admitted to the hospital on November 01 after a fall at home. The patient reports a four- to five-month history of cough. This is mostly a morning cough with small amount of clear white sputum. He has no additional cough or sputum over the course of the day typically. Denies any shortness of breath. On asking specifically, he says that in about the three or four days preceding his hospitalization, he had noticed a sensation of cold/chills but no fevers, sweats, chest pain, weight loss, shortness of breath. He had generalized weakness that led to his fall immediately after standing up and trying to walk at home but denies any dizzy spells, lightheadedness. He always has joint pains due to arthritis but denies any myalgias, nausea, vomiting,diarrhea, abdominal pain either. He says he very rarely saw tiny flecks of red in his cough and phlegm but this was not significantly changed in the last few days. PAST MEDICAL HISTORY: Fibromyalgia. Osteoarthritis, on 7.5 mg of prednisone daily. Parkinson disease. Atrial fibrillation. Not on anticoagulation, on aspirin alone. FAMILY HISTORY: His father had COPD but was a heavy smoker. SOCIAL HISTORY: The patient is a never smoker. He probably tried cigarettes as a teenager but never smoked regularly. He was a moderate alcohol drinker until about three years ago when he quit drinking. 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 He has traveled widely internationally in the past but no travel internationally in the last year. The only travel he has had is locally within [facility] and also to [place]. REVIEW OF SYSTEMS: A 10-point review of systems is as described above in HPI and otherwise negative. PHYSICAL EXAMINATION: Vital signs reviewed. T-max of 37.5 on day of admission but he has really been afebrile since with temperature around 36.6 today. Pulse 65, respirations 16, BP 112/70, sats 96% on room air. General: Elderly gentleman appearing younger than stated age. He is alert, oriented and appropriate. He looks comfortable in no distress. Neck: No cervical lymphadenopathy. HEENT: Oral mucosa is moist. No ulcers or thrush. No scleral icterus. Chest: Clear to auscultation anteriorly, but posteriorly I do hear a few crackles bilaterally diffusely. Heart irregular, no murmurs. Abdomen: Soft, nontender. No organomegaly. Extremities: No cyanosis, clubbing, edema. Skin: No rashes. LABORATORIES: Reviewed. WBC on admission 21.9 which is down slowly to 10.6 today. Chemistry also reviewed and within normal limits. Procalcitonin has been around 0.29 at its peak and 0.21 today. Cultures: Respiratory viral PCR negative. Blood cultures negative. MRSA screen negative. Urine Strep antigen and Legionella antigens negative. HIV negative. QuantiFERON Gold is pending. IMAGING: Chest x-ray, on November 01, 2016, shows left greater than right bilateral pulmonary infiltrates. CT of the chest with contrast on November 02, 2016, shows bilateral patchy ground-glass and nodular consolidation suggesting atypical infection. No significant lymphadenopathy. He does have some calcified right hilar nodes. CT of the chest, October 06, 2016--reviewed and shows completely clear, normal-appearing pulmonary parenchyma with the exception of a tiny 5 mm, right lower lobe pulmonary nodule that really appears to be part of scarring/atelectasis to me and not truly a separate nodule. ASSESSMENT AND RECOMMENDATIONS: 1. Bilateral pneumonia. 2. Chronic cough. 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 I do not think the patient is immunocompromised because of the 7.5 mg of prednisone--this is too low a dose for him to be at risk for opportunistic infections because of it. The appearance of pulmonary infiltrates on CT, i.e. bilateral, ground-glass and nodular patchy appearance could be due to an atypical pneumonia, with Chlamydia mycoplasma, etc. I think the most reasonable course here, given that he is afebrile, on room air, and his leukocytosis has pretty much resolved on therapy is to continue with the levofloxacin 750 mg. We could transition to p.o. and complete a total of 10 days of p.o. antibiotic. I would recommend sticking with the Levaquin since this would cover community-acquired and atypical organisms. Since the patient has no exposures or reasons to have an opportunistic infection, I think the next best step would be to have followup with me in about 3-4 weeks with a repeat chest x-ray to ensure improvement/resolution. In the meantime, if he is getting worse then he should come back and seek help either from the emergency department or call my office. The question of bronchoscopy and the possibility of tuberculosis was brought up. He really has no specific risk factors for TB. We know from his CT a month ago, that his lungs were completely clear one month ago and these symptoms seemed to have developed more recently as have these infiltrates. In this setting, I do not see that it is likely for someone to have developed TB within a few weeks with minimal symptoms like he is having. Also, it is not as if he has failed outpatient therapy or has had travel to areas where he could have been exposed to endemic fungal infection. Regardless, I still think there is no reason to pursue workup for opportunistic or unusual organisms unless he has failed regular therapy for community-acquired pneumonia, which he really has not done so far. The patient is allowed to eat. No plan for bronchoscopy currently. As mentioned above, I will see him in 3-4 weeks with a chest x-ray prior to the visit to ensure improvement and I recommend completing 10 days of levofloxacin. Please call for any questions.
--- NOTE | 2016-11-03 17:39 | NUR ---
Discharge Pt DC home with via private vehicle. Given todays dose of Levofloxacin per MD orders and prescription called in to [facility]. Pt and understanding of all DC instructions and will follow up with PCP in [address] Lam in 3 weeks. Pain medication given prior to DC per request. All belongings with pt.
[2016-11-04] MEDS ORDERED: LEVO750T9 PO (10:01)
--- NOTE | 2016-11-05 20:37 | PCM.DC.MED ---
Discharge Summary Date of Service Nov 03, 2016 Dates of Hospitalization Date of Hospital Admission Nov 01, 2016 at 20:48 Date of Discharge: Nov 03, 2016 Providers: Admitting Physician: Alisha Smart MD Primary Care Physician: Jerry Barber MD Attending Physician: Alisha Smart MD Diagnosis at Time of Discharge Diagnosis at Time of Discharge acute problems ground level fall in the setting of lower extremity weakness, Parkinson disease Chronic cough with abnormal CT chest findings, a/w probable atypical pneumonia chronic problems #chronic arthritis, #Chronic macrocytic anemia, #Chronic A. fib on ASA, #Chronic lower extremity edema on a diuretic, #Parkinson's dz #HTN #GERD #Depression/Anxiety #Chronic pain disorder/fibromyalgia on chronic opiates #Urinary urgency/incontinence and nocturia #history of prostate disorder (adenocarcinoma) Consultations Pulmonary Procedures XRay, CTs & MRIs PROCEDURE: CT CHEST WITH CONTRAST ([id number]) INDICATIONS: multifocal pna on cxr compared to CT last month TECHNIQUE: After the administration of intravenous contrast, 5 mm thick sections acquired from the pulmonary apices to the posterior costophrenic angles. 7 mm thick coronal and sagittal MIP reformats were acquired. For radiation dose reduction , the following was used: automated exposure control, adjustment of mA and/or kV according to patient size. COMPARISON: [facility], CR, XR CHEST 1VW (PORTABLE), 11/01/2016, 17: 43. [facility], CT, CT CHEST W CON, 10/06/2016, 12:59. FINDINGS: Image quality: Excellent. Lungs and pleura: No moderate patchy air space opacities within the bilateral upper and lower lobes are present, new since the prior examination, indicating multifocal pneumonia. There is consequent obscuration of the previously seen right lower lobe nodule. Small bilateral pleural effusions are present. No pneumothorax. Central and peripheral airways are patent and normal in caliber. Mediastinum: Heart size is normal. There is calcification of the coronary vasculature. Slightly increased right paratracheal lymph node measuring 10 mm short axis is present. Slightly increased subcarinal lymph node measuring 12 mm short axis is present. Calcified right paratracheal and right hilar lymph nodes are present, as before. No pericardial effusion. No mediastinal or hilar adenopathy by size criteria. Thoracic aorta and central pulmonary arteries are normal in size. Esophagus is normal in caliber. No hiatal hernia. Bones and chest wall: No suspicious bony lesions. No vertebral body compression fractures. No axillary or supraclavicular adenopathy by size criteria. Thyroid gland is within normal limits. Abdomen: Visualized upper abdominal solid organs appear normal. Upper abdominal bowel loops are normal in caliber. IMPRESSION: 1. Multifocal pneumonia with reactive mediastinal lymph node enlargement. 2. Previously seen right lower lobe pulmonary nodule is obscured. 3. Small bilateral parapneumonic effusions. 4. Coronary artery disease. Dictated by: Ray Desai M.D. on 11/02/2016 at 14:17 Approved by: Ray Desai M.D. on 11/02/2016 at 14:20 Date of Service: 11/01/16 1747 PROCEDURE: X-RAY CHEST ONE VIEW, PORTABLE ([id number]) IMPRESSION: Multifocal pneumonia. Dictated by: Ray Desai M.D. on 11/01/2016 at 18:18 Date of Service: 11/01/162009 PROCEDURE: CT BRAIN WITHOUT CONTRAST ([id number]) IMPRESSION: No acute process. Dictated by: Ray Desai M.D. on 11/01/2016 at 20:34 Please note the following imaging performed last month: Date of Service: 10/06/16 1231 PROCEDURE: CT CHEST WITH CONTRAST ([id number]) IMPRESSION: 1. Mild patchy air space opacities as above. No findings to explain patient's cough. 2. 6 mm right lower lobe pulmonary nodule. Please see followup guidelines below. Fleischner Society criteria for SOLID lung nodule followup. Dictated by: Florina Philip M.D. on 10/06/2016 at 14:53 ECG 12 Lead afib Brief History HPI obtained by Dr. Smart on 11/01 Dr. 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 Dr. Lawson reports that he has been feeling malaise over the last 3 days associated with chills, but not rigors (he notes that his chin would occasionally quiver). He reports this morning he awoke, prepared a cup of coffee, and at that point his returned home from an exercise group and reportedly told him that he did not look well. She advised that he go back to bed, and he reports that soon after standing from a seated position he fell to the ground. He does report that he hit the back of his head on the floor, stating that it "bounced." He reports that his told him that he did not lose consciousness, but he states that the details just prior to during soon after the fall are fuzzy to him, and he is not able to give a very detailed account of the events. He reports that once he was on the floor he attempted several times to get up off of the floor, and could not stating that he was very weak and his legs just would not work. At this point his reportedly asked him if she should get a neighbor to help, and she states that she advised her to call 911. Patient is not clear regarding how long he was on the ground. Per his report it sounds like the fall and the call to 911 And relatively close together, but the ER report states that he was down for approximately 2-1/2 hours before 911 was dialed. Occasionally during the interview he loses track of his thought, but is easily redirected. Soon after arriving at the ER, he reports that he developed mild headache which progressively got worse, and prompted a CT scan of the head without contrast ( this was negative). He reported significant body aches and pains here in the ER and received doses of IV Dilaudid, by mouth [place], and by mouth Tylenol which effectively relieved his pain to tolerable levels. He reports that he now feels somewhat back to baseline as far as his mentation, and feels mostly back to baseline as far as the strength in his legs though he states that he has not yet attempted to walk. In addition to the above, he reports a chronic cough for the last for maybe 5 months. He describes this cough as occurring in the morning (sometimes in the afternoon after a nap) and associated with expectoration of sputum (rarely is there ever a bloody streak). He denies any increase in cough or sputum production over the last 3 or 4 days. He also denies any sick contacts recently , recent travel, recent antibiotics (going back 3-6 months). He denies rash, but does report that he suspects he has some kind of "balanitis" as the tip of his penis will occasionally burn (not daily) with urination and there is some associated itching. He reports using topical creams (one of which is a hydrocortisone-based cream) for this condition, but it sounds like it is ongoing for some time now. He denies penile discharge, or increased frequency of urination, or suprapubic discomfort. He reports that his appetite is good, and despite his best efforts he has been gaining weight (though he notes that his lifestyle is quite sedentary and he is on chronic steroids). He does not feel this weight gain is water weight. He reports chronic lower extremity edema bilaterally for which she takes a diuretic (attempts to control with compression stockings in the past have resulted in increased pain in his feet and legs). Constipation is occasionally an issue, that he controls it well with MiraLAX and senna. He has chronic back pain but denies focal weakness, SOB, chest pain (including pleuritic pain), nausea, vomiting, diarrhea, dizziness, lightheadedness, vision change, numbness/paresthesias, and diaphoresis. Chest x-ray demonstrated multifocal opacities concerning for underlying infection in the setting of significant leukocytosis with neutrophilia. Patient was given a dose of Levaquin in the ER. Patient is admitted under inpatient status with expected length of stay greater than 2 midnights due to severity of presenting symptoms, risk of adverse event, and complexity of treatment plan. Hospital Course Jann Lawson is an 81-year-old obese male with past medical history significant for Afib, Parkinson's, and multifactorial chronic pain on chronic opiates and steroids (reports 7.5 mg prednisone daily) who presents to the ER due to generalized weakness following a ground-level fall at his home acute problems #Ground-level fall in the setting of LE weakness, no prodromes, POA, ddx: likely related to baseline motor weakness with PD and possibly newly developed infection. pt had minor head trauma. CTH negative for acute findings. pt was seen by PT daily basis, able to ambulate with steady gait, deemed safe for d/c to home. Although pt stated that he had similar episodes of fall many times 6- 7yrs ago when dxed with PD and about an year ago in the setting of worsened PD, however, recently there was no flare of symptoms and currently no signs of worsening PD, continued Dopamin agonist. Orthostatic v/s were negative. No episode were observed in telemetry. #Pulmonary infiltrates with leukocytosis and neutrophilia, POA, likely chronic but CXR showed multifocal opacities. chest CT prior to admission on 10/06 showed pulmonary nodule 6mm in RLL and patchy air space opacities in LLL. Given persistent chronic cough, chronic steroid use, chest CT with contrast repeated, which showed bilateral patchy ground-glass and nodular consolidation suggesting atypical infection. No significant lymphadenopathy,some calcified right hilar nodes. Respiratory status remained very stable with good oxygenation, pt was started on Levaquin, consulted with Pulmonary , decided to continue abx 10days course, repeat CXR in 3wks in the clinic. Given stable clinic picture , further invasive w/u such as bronchoscopy was not recommended. w/u including QuantiFERON Gold (given his travel to [place] in [facility]), HIV and hepatitis C were so far negative upon d/c. chronic problems, stable #chronic arthritis, pt is on chronic steroid tx for this, denied reporting any flare or arthritis, initialy received 20mg of stress dose but switched to 7.5 mg of prednisone daily, #Penile mucosal and cutaneous findings concerning for superficial inflammatory condition, unlikely associated with current presentation, #Hyperbilirubinemia, bil1.5 on adm, stable, #Chronic macrocytic anemia, vitB12/folate WNL #Chronic A. fib on ASA, continued asa #Chronic lower extremity edema on a diuretic, continued home meds #Parkinson's on carbidopa-levodopa, continued #HTN on hydrochlorothiazide, continued #GERD #Depression/Anxiety #Chronic pain disorder/fibromyalgia on chronic opiates, and will continue ( [place] 7.5/325 one tab every 4 hours when necessary) #Urinary urgency/incontinence and nocturia #Patient reports history of prostate disorder (adenocarcinoma)-he reports having a follow-up appointment with urology in the coming months (PSA in September of this year was 0.6) Exam Vital Signs (Last) Date Time Temp Pulse Resp B/P Pulse Ox O2 Delivery O2 Flow Rate FiO2 11/03/16 15:20 36.3 61 16 135/61 94 Room Air Exam Elderly male, comfortably laying down on the bed, pleasant no cog wheel movement, no rigidity, speaks fluently, normal speed, motor strength 5/5 throughout, no restring/intentional tremors no JVD, MMM, no LAD RRR, nl s1, s2 no mrg CTAB, no W,C S,ND,NT,normoactive BS+ warm, no edema, pulses 2/2 Test 11/01/16 17:42 11/01/16 18:30 11/01/16 23:15 11/02/16 07:00 Hold Purple Top Tube Received (Received) Hold Blue Top Tube Received (Received) Troponin T < 0.010ug/L (0.0-0.011) Pro-B-Type Natriuretic Peptide 1713pg/mL (0-486) Hold Red Top Tube Received (Received) Hold [place] Top Tube Received (Received) Lactic Acid Level 1.5mmol/L (0.4-2.0) Urine Color Yellow (YELLOW) Urine Appearance Clear (CLEAR,HAZY) Urine pH 7.0 (5.0-8.0) Urine Specific [place] 1.010 (1.003-1.035) Urine Protein Negativemg/dL (NEG,TRACE) Urine Glucose (UA) Negativemg/dL (NEGATIVE) Urine Ketones 40mg/dL (NEGATIVE) Urine Occult Blood Negative (NEGATIVE) Urine Nitrite Negative (NEGATIVE) Urine Bilirubin Negative (NEGATIVE) Urine Urobilinogen Normalmg/dL (NORMAL) Urine Leukocyte Esterase Negative (NEGATIVE) Urine RBC 0-2/hpf (0-2) Urine WBC 0-5/hpf (0-5) Urine Epithelial Cells Occasional/hpf (NONE-MOD) Urine Crystals Amorphous urates (NONE Urine Bacteria Few/hpf (NONE-FEW) Urine Hyaline Casts None/lpf (NONE) Urine Granular Casts None seen (NONE SEEN) Urine Waxy Casts None seen (NONE SEEN) Urine Red Blood Cell Casts None seen (NONE SEEN) Urine White Blood Cell Casts None seen (NONE SEEN) Urine Mucus None seen (None Seen) Urine Trichomonas None seen (NONE SEEN) Urine Yeast None (NONE SEEN) Urinalysis Comment None Urine Culture Reflexed Not indicated Urine Legionella pneumophilia Ag Negative (Negative) Lactate Dehydrogenase 192U/L (100-190) Vitamin B12 Level 844pg/mL (211-946) Vitamin D 25-Hydroxy 42.8ng/mL (30.0-100.0) Folate 19.8ng/mL (>3.0) Hepatitis C Antibody <0.1s/co ratio (0.0-0.9) HIV (1&2) Ag and Ab, 4th Generation Non reactive (Non Reactive) Test 11/03/16 05:10 White Blood Count 10.6th/mm3 (3.8-10.1) Red Blood Count 3.31mil/mm3 (4.40-5.80) Hemoglobin 11.3g/dL (13.8-17.2) Hematocrit 34.8% (41.0-50.0) Mean Corpuscular Volume 105.1fL (81-100) Mean Corpuscular Hemoglobin 34.1pg (27.0-35.0) Mean Corpuscular Hemoglobin Concent 32.5% (32.0-37.0) Red Cell Distribution Width 13.1% (12.3-15.4) Platelet Count 168bil/L (150-400) Neutrophils (%) (Auto) 81.6% (40-74) Lymphocytes (%) (Auto) 11.6% (14-46) Monocytes (%) (Auto) 6.3% (4-12) Eosinophils (%) (Auto) 0.1% (0-5) Basophils (%) (Auto) 0.1% (0-3) Sodium Level 140mEq/L (134-144) Potassium Level 4.6mEq/L (3.5-5.2) Chloride Level 102mEq/L (97-108) Carbon Dioxide Level 27mmol/L (18-29) Blood Urea Nitrogen 14mg/dL (8-27) Creatinine 0.66mg/dL (0.76-1.27) Estimat Glomerular Filtration Rate 123mL/min (>59) Glucose Level 99mg/dL (60-99) Calcium Level 8.6mg/dL (8.5-10.1) Phosphorus Level 2.4mg/dL (2.5-4.9) Magnesium Level 2.1mg/dL (1.6-2.6) Total Bilirubin 0.7mg/dL (0.0-1.2) Aspartate Amino Transf (AST/SGOT) 31U/L (0-50) Alanine Aminotransferase (ALT/SGPT) 5U/L (0-44) Alkaline Phosphatase 62U/L (25-160) Total Protein 5.2g/dL (6.4-8.4) Albumin 3.3g/dL (3.4-5.0) Procalcitonin 0.21ng/mL (0.00-0.08) Discharge Medications Discharge Medications Alendronate (Alendronate) 40 Mg Tablet 70 MG PO WEEKLY (Reported) Take on Saturdays Aspirin (Aspirin) 81 Mg Tablet 81 MG PO DAILY (Reported) Brimonidine Tartrate/Timolol (Combigan Eye Drops) 5 Ml Drops 5 ML LEFT_EYE BID ( Reported) Carbidopa/Levodopa 25-100 mg (Carbidopa/Levodopa 25-100 mg) 1 Each Tablet 1 TABLET PO TID (Reported) Carboxymethylcellulos/Glycerin (Refresh Optive Gel Eye Drops) 1 %-0.9 % Drops.gel 10 ML BOTH_EYES HS (Reported) 1 drop at night and as needed throughout the day Docusate Calcium (Stool Softener) 240 Mg Capsule 240-480 MG PO DAILY (Reported) Famotidine/Ca Carb/Mag Hydrox (Duo Fusion Tablet Chew) 10 Mg-800 Mg-165 Mg Tab.chew 1 EACH PO QAM (Reported) Fluticasone Propionate (Flonase Allergy Relief) 50 Mcg/Actuation [place].susp 1 SPRAY NS DAILY (Reported) Hydrochlorothiazide (Hydrochlorothiazide) 25 Mg Tablet 25 MG PO Mon/Sun/Fri ( Reported) Hydrocodone-Acetaminophen 7.5-325 mg (Hydrocodone-Acetaminophen 7.5-325 mg) 1 Each Tablet 1-2 TABLET PO DIRECTED (Reported) Takes 2 in AM, 1 in afternoon, 2-3 tablets at HS. Up to 6/day. Ipratropium [place]man (Ipratropium G[place] 0.03% Nasal) 30 Ml [place] 2 SPRAY NS BID -TID (Reported) Latanoprost (Latanoprost) 2.5 Ml Drops 1 GTT LEFT_EYE QAM (Reported) Takes in AM Levofloxacin (Levaquin) 750 Mg Tablet 750 MG PO DAILY@2029 Prescribed by: VICTOR MANUEL MONIQUE MD Lorazepam (Lorazepam) 0.5 Mg Tablet 0.5 MG PO BID (Reported) Takes in evening and at HS Magnesium Oxide (Magnesium) 400 Mg Tablet 400 MG PO HS (Reported) Magnesium Trisilicate/Alh/Nahco3/Aa (Gaviscon Chew) 1 Each Tab.chew 1 TABLET PO HS (Reported) Multivit with Calcium,Iron,Min (Therapeutic M) 1 Each Tablet 1 EACH PO DAILY ( Reported) Potassium Chloride ER (Potassium Chloride ER) 10 Meq Tablet 10 MEQ PO Mon/Sun/ Fri (Reported) TAKE WITH FOOD Prednisolone Acetate (Prednisolone Acetate) 5 Ml Drops.susp 5 ML LEFT_EYE HS ( Reported) Prednisone (PredniSONE) 5 Mg Tab 7.5 MG PO DAILY (Reported) Pregabalin (Lyrica) 225 Mg Capsule 225 MG PO HS (Reported) Tizanidine (Tizanidine) 4 Mg Tablet 6 MG PO HS (Reported) As needed Acetaminophen (Acetaminophen) 500 Mg Tablet 500-1,000 MG PO Q6H PRN PRN ARTHRITIS (Reported) Diclofenac Gel (Voltaren Gel) 100 Gm Tube 1 APPLIC TOPICAL DAILY PRN PRN For Pain (Reported) To shoulders Lactase (Lactase) 3,000 Unit Tablet 9,000 UNIT PO DIRECTED PRN PRN WITH DAIRY PRODUCTS (Reported) Loperamide (Loperamide) 2 Mg Capsule 2 MG PO Q4H PRN PRN For Diarrhea or Loose Stool (Reported) Loratadine (Claritin) 10 Mg Capsule 10 MG PO DAILY PRN PRN ALLERGIES (Reported) Polyethylene Glycol 3350 (Miralax) 17 Gm Powd.pack 17 GM PO DAILY PRN PRN For Constipation (Reported) Additional med instructions Please take Levaquin 750mg daily for 8more days Followup Plan Disposition: home Follow-up plan Please follow-up with your doctor in 2 weeks Please follow up with doctor Genaro in 3weeks, Discharge Diet: Low fat, Low Sodium, Heart Healthy Discharge Activity: No restrictions Patient Instructions You were hospitalized with fall, monitored in the hospital, assessed by physical therapy, notice that your more strength is at your baseline. Please note that you were found abnormal findings on your chest CT, empirically treated for pneumonia, recommended by Pulmonary service to continue antibiotics. Follow-up Provider: Jerry Barber MD Follow-up with PCP in: 2 weeks Provider: Vero Lam MD Follow-up in: 3 weeks Time spent 65min copies to: Jerry Barber MD, Jongwoo MD Nov 05, 2016 20:37
== END 2016-11-03 16:48 | disposition home or self-care (01) | DRG 194 ==
LOC: EDBD 17:22 → SED 17:22 → OSC 20:48
PROVIDERS: ADMIT Specialist; ATTEND Specialist
DX: J18.9 Pneumonia, unspecified organism (principal); F11.20 Opioid dependence, uncomplicated; G20 Parkinson's disease; I48.2 Chronic atrial fibrillation; I10 Essential (primary) hypertension; K21.9 Gastro-esophageal reflux disease without esophagitis; G89.29 Other chronic pain; W18.39XA Other fall on same level, initial encounter; Y92.019 Unspecified place in single-family (private) house as the place of occurrence of the external cause; Z79.52 Long term (current) use of systemic steroids; M19.90 Unspecified osteoarthritis, unspecified site; R39.15 Urgency of urination